=== PATIENT | male | born 1955 | race Caucasian/White ===

== ENCOUNTER 2019-10-21 17:58 | Inpatient (IN) | payer BC ==
--- NOTE | 2019-10-21 19:08 | ED ---
Neuro HPI - General Chief Complaint: Neuro Symptoms/Deficit Stated Complaint: Rt sided weakness Time Seen by Provider: 10/21/19 18:05 Source: patient, EMS Mode of arrival: EMS Limitations: no limitations - History of Present Illness Is the patient presenting with stroke symptoms?: Yes Initial Comments: The patient is a 64-year-old male who is a transfer from [facility] for strokelike symptoms. His reported that on Saturday the patient began having weakness in his right lower extremity as well as ataxia. The patient and this morning noted that he had ataxia and weakness in his right upper extremity. His noted that he was having some slurred speech. He went into [facility] where they were suspecting a cerebellar stroke. Patient had a CT and laboratory studies which were performed which were negative. They did transfer the patient for neurology evaluation. - Related Data Home Medications: Previous Rx's Medication Instructions Recorded Aspirin 81 mg PO DAILY #30 chew 10/22/19 Atorvastatin Calcium [Lipitor] 40 mg PO HS #30 tablet 10/22/19 Clopidogrel [Plavix] 75 mg PO DAILY #21 tab 10/22/19 Allergies/Adverse Reactions: Allergies Allergy/AdvReac Type Severity Reaction Status Date / Time No Known Allergies Allergy Verified 10/21/19 19:21 Review of Systems ROS Statement: Those systems with pertinent positive or pertinent negative responses have been documented in the HPI. ROS Other: All systems not noted in ROS Statement are negative. General Exam Limitations: no limitations General appearance: alert, in no apparent distress Head exam: Present: atraumatic, normocephalic, normal inspection Eye exam: Present: normal appearance, PERRL, EOMI. Absent: scleral icterus, conjunctival injection, periorbital swelling ENT exam: Present: normal exam, mucous membranes moist Neck exam: Present: normal inspection. Absent: tenderness, meningismus, lymphadenopathy Respiratory exam: Present: normal lung sounds bilaterally. Absent: respiratory distress, wheezes, rales, rhonchi, stridor Cardiovascular Exam: Present: regular rate, normal rhythm, normal heart sounds. Absent: systolic murmur, diastolic murmur, rubs, gallop, clicks GI/Abdominal exam: Present: soft, normal bowel sounds. Absent: distended, tenderness, guarding, rebound, rigid Extremities exam: Present: normal inspection, full ROM, normal capillary refill. Absent: tenderness, pedal edema, joint swelling, calf tenderness Back exam: Present: normal inspection Neurological exam: Present: alert, oriented X3, CN II-XII intact, other (4/5 strength in the rle. 5/5 muscle strength in all other extremities. Difficulties with finger to nose of the right upper extremity and heel to silvestre of the right lower extremity. ) Psychiatric exam: Present: normal affect, normal mood Skin exam: Present: warm, dry, intact, normal color. Absent: rash Stroke MDM - Lab Data Result diagrams: 10/22/19 06:14 10/22/19 06:14 - Medical Decision Making Upon arrival the patient was placed into room 6. A thorough history and physica l exam was performed. Review the patient's CT without contrast which was done at [facility] demonstrates no acute intracranial abnormality. Patchy hypodensities in the deep white matter most likely representing chronic small vessel ischemic change. Focal chronic appearing lacunar infarct in the right thalamus. Review the patient's laboratory demonstrated white blood cell count of 19.6. Troponin is not detected. Remainder of laboratory studies normal. The patient is swabbed for Covid which is negative. The patient was admitted to [facility]. I discussed the case with Dr. wilson. I ordered an echo and carotid Dopplers. I will place neurology on consult. Patient was transported to the floor in stable condition Past Medical History History of Any Multi-Drug Resistant Organisms: None Reported Past Surgical History: Orthopedic Surgery Smoking Status: Never smoker Past Alcohol Use History: None Reported, Occasional Past Drug Use History: None Reported - Past Family History Father Family Medical History: CVA/TIA Course Vital Signs 10/21/19 10/21/19 18:01 20:22 Temperature 99.1 F Pulse Rate 71 65 Respiratory 18 15 Rate Blood Pressure 131/76 125/70 O2 Sat by Pulse 97 97 Oximetry Disposition Clinical Impression: Right sided weakness, Cerebrovascular accident (CVA) Disposition: ADMITTED IP TO THIS [facility] Condition: Stable Is patient prescribed a controlled substance at d/c from ED?: No Decision to Admit Reason: Admit from EC Decision Date: 10/21/19 Decision Time: 19:08
[2019-10-21] MEDS ORDERED: NALOXONE 0.4 MG/ML 1 ML VIAL IV PRN (19:25)
[2019-10-21] MEDS: SODIUM CHLORIDE 0.9% 1,000 ML IV SCH (19:35)
[2019-10-21] MEDS ORDERED: POTASSIUM CHLORIDE ER 20 MEQ TAB.ER PO STA (21:56)
--- NOTE | 2019-10-21 22:00 | P.HPIM ---
History of Present Illness H&P Date: 10/21/19 The patient is a 64-year-old male with no known PMH, who was a transfer from [facility] where he presented earlier today with complaints of right- sided weakness. Patient notes that he initially started feeling a right hand numbness 2 days ago, though didn't pay much attention to it. Upon waking up this morning at 5:30 am, the patient noted that his right hand felt stiff and weak, and that his right leg was also very weak and he was unable to ambulate properly. He notes that his symptoms worsened as the day went on, which prompted him to call EMS and the patient presented to [facility] where he underwent an extensive evaluation. His CT brain revealed patchy hypodensities in the deep white matter consistent with small vessel ischemic changes along with a focal chronic lacunar infarct in the right thalamus but was otherwise unremarkable. EKG had revealed a normal sinus rhythm at [address]/T-wave changes. Telemetry evaluation had revealed WBC count of 19.6, hemoglobin 13.6, platelets 173, sodium 138, potassium 3.4, BUN 17, creatinine 0.9, troponin unremarkable, AST 12, and ALT 15. The patient was transferred to [facility] for neurology evaluation. At time of the interview, the patient notes that he continues to feel weakness involving the right hand and the right leg. He denied headaches, visual disturbances, numbness/tingling/weakness elsewhere, fever, chills, dysuria, diarrhea, chest pain, or shortness breath. He denied any previous history of strokes or weakness, though did endorse a family history of CVA with his father suffering a stroke at the age of 45. Review of Systems Pertinent positives and negatives as discussed in HPI, a complete review of systems was performed and all other systems are negative. Past Medical History Past Medical History: No Reported History History of Any Multi-Drug Resistant Organisms: None Reported Past Surgical History: Orthopedic Surgery Smoking Status: Never smoker Past Alcohol Use History: None Reported, Occasional Past Drug Use History: None Reported - Past Family History Father Family Medical History: CVA/TIA Medications and Allergies Home Medications Medication Instructions Recorded Confirmed Type No Known Home Medications 10/21/19 10/21/19 History Allergies Allergy/AdvReac Type Severity Reaction Status Date / Time No Known Allergies Allergy Verified 10/21/19 19:21 Physical Exam Vitals: Vital Signs Temp Pulse Resp BP Pulse Ox 10/21/19 20:22 65 15 125/70 97 10/21/19 18:01 99.1 F 71 18 131/76 97 Intake and Output 10/21/19 10/21/19 10/21/19 06:59 14:59 22:59 Other: Weight 81.647 kg General: non toxic, no distress, appears at stated age, overweight Derm: no unusual rashes/lesions no unusual ecchymoses, warm, dry Head: atraumatic, normocephalic, symmetric Eyes: EOMI, no lid lag, anicteric sclera, pupils equal round reactive to light ENT: Nose and ears atraumatic, no thrush, no pharyngeal erythema Neck: No thyromegaly, no cervical lymphadenopathy, trachea midline, supple Mouth: no lip lesion, mucus membranes moist Cardiovascular: S1S2 reg, no murmur, positive posterior tibial pulse bilateral, no edema, capillary refill less than 2 seconds Lungs: CTA bilateral, no rhonchi, no rales , no accessory muscle use Abdominal: soft, nontender to palpation, no guarding, no appreciable organomegaly, normal bowel sounds Ext: no gross muscle atrophy, muscle strength 4+/5 involving R upper and lower extremities, strength 5/5 for LUE and LLE, Neuro: CN II-XI grossly intact, diminished sensation to soft touch of R distal UE, sensation wnl elsewhere, babinski downwards karrie, no pronator drift, [id number] wnl Psych: Alert, oriented, appropriate affect Assessment and Plan Plan: R sided weakness and numbness, likely acute CVA -Onset 24-48 hours ago -CT brain showing chronic ischemic changes -Consult neurology -Obtain echocardiogram, carotid duplex, cardiac monitoring -Continue with aspirin and start statin -ASSOCIATE [employer]OR [employer] COUNSELING evaluation -Fall, aspiration precautions -PT evaluation -Obtain A1c, lipid panel Leukocytosis, unclear etiology -Monitor CBC for now -No clear infectious process noted Hypokalemia -Replace and monitor Overweight -Advised patient on importance of lifestyle modifications DVT prophylaxis -Heparin subq The patient is admitted with an anticipated more than 2 midnight stay for evaluation of acute CVA CODE STATUS: Full Code Discussed with: Patient Anticipated discharge date: 2-[address]: Home A total of 40 minutes was spent on the care of this complex patient more than 50% of the time was spent in counseling and care coordination.
[2019-10-21] MEDS: HEPARIN SODIUM,PORCINE 5,000 UNIT/ML 1 ML VIAL SQ SCH (22:42)
[2019-10-22] MEDS: SODIUM CHLORIDE 0.9% 1,000 ML IV SCH (05:18)
[2019-10-22 06:50] LABS: Basophils % (A) 0 %; Eosinophils # (A) 0.1 k/uL (0-0.7); Eosinophils % (A) 1 %; HCT 39.7 % (39.0-53.0); HGB 13.1 gm/dL (13.0-17.5); Lymphocytes % (A) 13 %; MCH 29.5 pg (25.0-35.0); MCV 89.5 fL (80.0-100.0); Mean Platelet Volume 7.7; Monocytes # (A) 0.4 k/uL (0-1.0); Monocytes % (A) 5 %; Neutrophils % (A) 80 %; Platelet Count 160 k/uL (150-450); RBC 4.43 m/uL (4.30-5.90); RDW 13.5 % (11.5-15.5); WBC 7.5 k/uL (3.8-10.6)
[2019-10-22 07:18] LABS: African American GFR (CKD) >90 (>60 ml/min/1.73 sqM); Anion Gap 4 mmol/L; Blood Urea Nitrogen 14 mg/dL (9-20); Calcium 8.4 mg/dL (8.4-10.2); Carbon Dioxide 24 mmol/L (22-30); Chloride 110 mmol/L (98-107); Glucose 92 mg/dL (74-99); Non-African American GFR(CKD) >90 (>60 ml/min/1.73 sqM); Potassium 4.3 mmol/L (3.5-5.1); Sodium 138 mmol/L (137-145)
[2019-10-22 07:26] LABS: Cholesterol 161 mg/dL (<200); HDL Cholesterol 42 mg/dL (40-60); LDL Cholesterol,Calculated 106 mg/dL (0-99); Triglycerides 64 mg/dL (<150)
--- NOTE | 2019-10-22 08:50 | US ---
EXAMINATION TYPE: US carotid duplex BILAT DATE OF EXAM: 10/22/2019 COMPARISON: NONE CLINICAL HISTORY: cva. EXAM MEASUREMENTS: RIGHT: Peak Systolic Velocity (PSV) cm/sec ----- Right CCA: 119.2 ----- Right ICA: 107.0 ----- Right ECA: 147.3 ICA/CCA ratio: 0.9 RIGHT: End Diastole cm/sec ----- Right CCA: 24.4 ----- Right ICA: 28.5 ----- Right ECA: 9.9 LEFT: Peak Systolic Velocity (PSV) cm/sec ----- Left CCA: 133.2 ----- Left ICA: 121.1 ----- Left ECA: 234.02 ICA/CCA ratio: 0.9 LEFT: End Diastole cm/sec ----- Left CCA: 32.7 ----- Left ICA: 30.5 ----- Left ECA: 25.3 VERTEBRALS (direction of flow): Right Vertebral: Antegrade Left Vertebral: Antegrade Rhythm: Normal Mild to moderate plaque with no significant stenosis. IMPRESSION: Calcified plaque without evidence for hemodynamically significant stenosis. Criteria for Assigning % of Stenosis / Diameter reduction (Estimation based on the indirect measurements of the internal carotid artery velocities (ICA PSV). 1. Normal (no stenosis)=ICA PSV < 125 cm/s: ratio < 2.0: ICA EDV<40 cm/s. 2. Less than 50% stenosis=ICA PSV < 125 cm/s: ratio < 2.0: ICA EDV<40 cm/s. 3. 50 to 69% stenosis=ICA PSV of 125 to 230 cm/s: ration 2.0 ? 4.0: ICA EDV 40-100 cm/s. 4. Greater than 70% stenosis to near occlusion= ICA PSV > 230 cm/s: ratio > 4.0: ICA EDV > 100 cm/s. 5. Near occlusion= ICA PSV velocities may be low or undetectable: variable ratio and ICA EDV. 6. Total occlusion=unable to detect flow.
[2019-10-22] MEDS ORDERED: ATORVASTATIN 80 MG TAB PO SCH (09:00)
[2019-10-22] MEDS ORDERED: ASPIRIN 81 MG PO SCH (09:00)
[2019-10-22 09:04] VITALS: RESP 18; TEMP 98.2
[2019-10-22] MEDS: HEPARIN SODIUM,PORCINE 5,000 UNIT/ML 1 ML VIAL SQ SCH (09:11)
--- NOTE | 2019-10-22 11:35 | MR ---
EXAMINATION TYPE: MR brain wo con DATE OF EXAM: 10/22/2019 11:25 AM COMPARISON: NONE HISTORY: Right sided Weakness, CVA FINDINGS: The ventricles, basal cisterns and sulci overlying the cerebral convexities are mildly enlarged. There is evidence of moderate periventricular white matter ischemic demyelination. Underlying demyel ination not excluded Remote deep white matter insults are also noted. On diffusion weighted imaging there is a small focus of increased signal within the left lizbeth compati ble with small acute vascular insult. There is no evidence for midline shift or mass effect. Acute intracranial hemorrhage or extra-axial collection is not evident. The paranasal sinuses and mastoid air cells are well-aerated. IMPRESSION: 1. On diffusion weighted imaging there is a small focus of increased signal within the left lizbeth com patible with small acute vascular insult. 2. Age-related atrophic and chronic small vessel ischemic change.
--- NOTE | 2019-10-22 11:39 | ECHOF ---
Referral Reason:cva MEASUREMENTS -------- HEIGHT: 167.6 cm WEIGHT: 77.6 kg BP: 104/56 RVIDd: 3.0 cm (< 3.3) IVSd: 1.2 cm (0.6 - 1.1) LVIDd: 5.2 cm (3.9 - 5.3) LVPWd: 1.2 cm (0.6 - 1.1) IVSs: 1.6 cm LVIDs: 3.7 cm LVPWs: 1.6 cm LA Diam: 3.2 cm (2.7 - 3.8) LAESV Index (A-L): 30.64 ml/m Ao Diam: 3.2 cm (2.0 - 3.7) AV Cusp: 2.0 cm (1.5 - 2.6) MV EXCURSION: 16.269 mm (> 18.000) MV EF SLOPE: 90 mm/s (70 - 150) EPSS: 0.4 cm MV E Justin: 1.09 m/s MV DecT: 177 ms MV A Justin: 1.00 m/s MV E/A Ratio: 1.10 RAP: 5.00 mmHg RVSP: 31.76 mmHg FINDINGS -------- Sinus rhythm. This was a technically good study. The left ventricular size is normal. There is borderline concentric left ventricular hypertrophy. Overall left ventricular systolic function is normal with, an EF between 60 - 65 %. The right ventricle is normal in size. LA is midly dilated 29-33ml/m2. The right atrium is normal in size. Interatrial and interventricular septum intact. There is mild aortic valve sclerosis. Trace to mild aortic regurgitation. The mitral valve is normal. Mild tricuspid regurgitation present. Right ventricular systolic pressure is normal at < 35 mmHg. The pulmonic valve was not well visualized. The aortic root size is normal. Normal inferior vena cava with normal inspiratory collapse consistent with estimated right atrial pre ssure of 5 mmHg. The inferior vena cava is mildly dilated. There is no pericardial effusion. CONCLUSIONS -------- 1. Sinus rhythm. 2. This was a technically good study. 3. The left ventricular size is normal. 4. There is borderline concentric left ventricular hypertrophy. 5. Overall left ventricular systolic function is normal with, an EF between 60 - 65 %. 6. The right ventricle is normal in size. 7. LA is midly dilated 29-33ml/m2. 8. The right atrium is normal in size. 9. Interatrial and interventricular septum intact. 10. There is mild aortic valve sclerosis. 11. Trace to mild aortic regurgitation. 12. The mitral valve is normal. 13. Mild tricuspid regurgitation present. 14. Right ventricular systolic pressure is normal at < 35 mmHg. 15. The pulmonic valve was not well visualized. 16. The aortic root size is normal. 17. Normal inferior vena cava with normal inspiratory collapse consistent with estimated right atrial pressure of 5 mmHg. 18. The inferior vena cava is mildly dilated. 19. There is no pericardial effusion. DRAPERY SUPERVISOR: Nelda Morillo RDCS
[2019-10-22] MEDS ORDERED: CLOPIDOGREL 75 MG TAB PO SCH (11:45)
--- NOTE | 2019-10-22 13:33 | P.PN ---
Subjective Progress Note Date: 10/22/19 Patient is feeling well today. Weakness on the right side of his body resolved today. No acute events overnight. Objective - Vital Signs Vital signs: Vital Signs Temp 98.2 F 10/22/19 08:00 Pulse 60 10/22/19 12:00 Resp 18 10/22/19 12:00 BP 134/63 10/22/19 12:00 Pulse Ox 97 10/22/19 12:00 Intake & Output 10/21/19 10/22/19 10/22/19 18:59 06:59 18:59 Intake Total 640 Balance 640 Weight 81.647 kg 77.9 kg Intake: Intake, IV Titration 400 Amount Sodium Chloride 0.9% 1, 400 000 ml @ 100 mls/hr IV . Q10H RAFAEL Rx#:[id number] Oral 240 Other: Voiding Method Toilet Toilet # Voids 1 3 - Exam General: The patient is awake and alert, in no distress Eye: there is normal conjunctiva bilaterally. Neck: The neck is supple, there is no JVD. Cardiovascular: Normal S1-S2, no S3-S4, no murmurs. Respiratory: Lungs clear to auscultation bilaterally Gastrointestinal: Abdomen is soft, nontender Musculoskeletal: There is no pedal edema. Neurological:. Speech is normal. Skin: Skin is warm and dry - Labs CBC & Chem 7: 10/22/19 06:14 10/22/19 06:14 Labs: Abnormal Lab Results - Last 24 Hours (Table) 10/22/19 10/22/19 Range/Units 06:14 06:14 Chloride 110 H (98-107) mmol/L Creatinine 0.63 L (0.66-1.25) mg/dL LDL Cholesterol, Calc 106 H (0-99) mg/dL Assessment and Plan Assessment: 1. Acute stroke involving the left lizbeth noted on MRI of the brain. Symptoms of right sided weakness and numbness resolved. Awaiting neurology evaluation. Doppler ultrasound of the carotid arteries with no hemodynamically significant stenosis. Echocardiogram showed preserved EF with no significant valvular abnormalities or so intracardiac source. PT/OT evaluation. Continue aspirin daily. Lipitor at bedtime. 2. Hypokalemia, resolved 3. DVT prophylaxis with subcu heparin
--- NOTE | 2019-10-22 14:26 | P.DS ---
Providers Date of admission: 10/21/19 19:25 Expected date of discharge: 10/22/19 Attending physician: Jelani Peña MD Consults: 10/21/19 19:25 Consult Physician Urgent Consulting Provider: Brandy Mann Consult Reason/Comments: acute right sided weakness, ataxia, suspected CVA Do you want consulting provider notified?: Yes Primary care physician: Shawn Pepe MD Hospital Course: This is a 64-year-old male with no significant past medical history who presented to the emergency room with right-sided weakness and numbness involving upper and lower extremity. Patient was evaluated in the ER and computed tomography scan of the head showed no acute findings. Evidence of old ischemic events were noted. He was admitted to the hospital for further management of his medical problems noted below. 1. Acute stroke involving the left lizbeth noted on MRI of the brain. Symptoms of right sided weakness and numbness resolved. Doppler ultrasound of the carotid arteries with no hemodynamically significant stenosis. Echocardiogram showed preserved EF with no significant valvular abnormalities or so intracardiac source. Patient was seen and evaluated by neurology. He was cleared for discharge home. He was assessed by physical therapy and did well. Plan is to continue aspirin 81 mg daily indefinitely and Plavix 75 mg daily for 3 weeks. 2. Hyperlipidemia, started on Lipitor 40 mg at bedtime Patient will be discharged home in a stable condition. For further details about this hospitalization please refer to the electronic chart. Patient Condition at Discharge: Stable Plan - Discharge Summary Discharge Rx Participant: No New Discharge Prescriptions: New Aspirin 81 mg PO DAILY #30 chew Atorvastatin Calcium [Lipitor] 40 mg PO HS #30 tablet Clopidogrel [Plavix] 75 mg PO DAILY #21 tab Discharge Medication List Aspirin 81 mg PO DAILY #30 chew 10/22/19 [Rx] Atorvastatin Calcium [Lipitor] 40 mg PO HS #30 tablet 10/22/19 [Rx] Clopidogrel [Plavix] 75 mg PO DAILY #21 tab 10/22/19 [Rx] Follow up Appointment(s)/Referral(s): Shawn Pepe MD [Primary Care Provider] - 1-2 days Discharge Disposition: HOME SELF-CARE Care Plan Goals (MU): Local neurologist 2-[address] Mann
--- NOTE | 2019-10-22 14:38 | P.CNNES ---
History of Present Illness Consult date: 10/22/19 Requesting physician: Mariah Bobby Reason for Consult: Acute right-sided weakness, ataxia, suspected CVA. History of Present Illness: Patient is a 64-year-old right-handed male, transferred from [facility] where he presented yesterday morning with complaints of right-sided weakness. His symptoms started on 10/19/2019 at around 9:30 PM, when he noticed his right hand was feeling different, tight. Also noticed slightly off balance with the right leg. Next a on Saturday morning, continue to feel symptoms on the right side. He fell right side was not as good as the left. Balance was slightly off. On Saturday, yesterday he knew that something was not right and he was having more difficulty walking and the right leg felt floppy. He at first went to work but then decided to go to the ER. Patient went to [facility] where he had a computed tomography scan of head performed at [facility] which revealed hypodensities in the deep white matter consistent with small vessel ischemic changes along with a focal chronic lacunar infarct in the right thalamus but was otherwise unremarkable. EKG showed normal sinus rhythm at 80 beats per minute with no ST/T-wave abnormalities. WBC 19.6 and will begin 13.6 platelets 173. Chem-7, troponin normal. Liver panel normal, with AST 12, ALT 15. Patient was transferred to [facility] yesterday at 6 PM. Patient underwent an MRI of the brain revealed small focus of increased signal within the left lizbeth, compatible with small acute vascular insult. Age-related atrophic and chronic small vessel ischemic change. Carotid Doppler showed calcified plaque without evidence for hemodynamically significant stenosis. Antegrade flow in both vertebral arteries. Patient's cholesterol is 161, LDL 106, HDL 42, triglycerides 64. Angulo virus PCR negative. Patient denies any history of hypertension, diabetes or any tobacco use. He drinks alcohol once a week, maybe one can a week. Patient does not take any medication at all at home. At present patient feels his symptoms have much improved. He was feeling steady going to the bathroom. The strength is improved. Denies any numbness tingling. Review of Systems Completely unremarkable as above. Denies chest pain shortness of breath w heezing or cough. Denies abdominal pain nausea vomiting diarrhea. All other review of systems completely unremarkable. Past Medical History Past Medical History: No Reported History History of Any Multi-Drug Resistant Organisms: None Reported Past Surgical History: Orthopedic Surgery Past Anesthesia/Blood Transfusion Reactions: No Reported Reaction Smoking Status: Never smoker Past Alcohol Use History: None Reported, Occasional Past Drug Use History: None Reported - Past Family History Father Family Medical History: CVA/TIA Medications and Allergies Home Medications Medication Instructions Recorded Confirmed Type Aspirin 81 mg PO DAILY #30 chew 10/22/19 Rx Atorvastatin Calcium [Lipitor] 40 mg PO HS #30 tablet 10/22/19 Rx Clopidogrel [Plavix] 75 mg PO DAILY #21 tab 10/22/19 Rx Allergies Allergy/AdvReac Type Severity Reaction Status Date / Time No Known Allergies Allergy Verified 10/21/19 19:21 Physical Examination - Vital Signs Vital Signs: Vital Signs Temp Pulse Pulse Resp BP BP BP 10/22/19 08:00 98.2 F 66 18 116/55 10/22/19 04:00 98 F 65 17 104/56 10/22/19 00:00 98 F 55 L 17 108/55 10/21/19 21:40 97.7 F 69 16 137/63 10/21/19 20:22 65 15 125/70 10/21/19 18:01 99.1 F 71 18 131/76 Pulse Ox 10/22/19 08:00 99 10/22/19 04:00 96 10/22/19 00:00 99 10/21/19 21:40 96 10/21/19 20:22 97 10/21/19 18:01 97 Intake and Output 10/21/19 10/22/19 10/22/19 22:59 06:59 14:59 Intake Total 240 Balance 240 Intake: Oral 240 Other: Voiding Method Toilet Toilet # Voids 1 1 Weight 81.647 kg 77.9 kg On examination patient is a young looking elderly male, in no distress. He is alert and awake. Speech and language functions are normal. Attention and concentration fund of knowledge is adequate. On cranial examination pupils are round and reactive to light. Visual murguia are full on confrontation, extraocular muscles intact with no nystagmus. Face is symmetric, tongue protrudes the midline. Palatal elevation and sensation normal. Hearing and shoulder shrug normal. On muscle strength testing patient has mild right pronation no drift. The strength is completely normal in both arms and legs dis tally and proximally except right hip flexion, which is about 5-on the right as compared to left. Patient has mild to moderate ataxia for [id number] and [id number] testing only on the right side. Sensory touch is equal with no neglect. Tone and bulk of muscles normal. Patient had walked with a physical therapy and was felt stable. There is no carotid bruit or murmur, peripheral pulses present. Chest is clear to auscultation, abdomen soft nontender. No edema. Results - Laboratory Findings CBC and BMP: 10/22/19 06:14 10/22/19 06:14 Abnormal Lab Findings: Abnormal Labs 10/22/19 10/22/19 06:14 06:14 Chloride 110 H Creatinine 0.63 L LDL Cholesterol, Calc 106 H Assessment and Plan Assessment: * Acute ischemic stroke, left lizbeth, with right kandy-ataxia. Motor and sensory examination appears normal at this time. Mechanism of stroke likely from small vessel disease. Current NIHSS 2 (ataxia right upper and lower limbs). * Mild dyslipidemia Plan: * Patient is doing quite well. I would suggest placing patient on dual antiplatelet medication for 3 weeks and then stay on aspirin 81 mg daily inde finitely. * Lipitor 20 mg daily. * Patient's blood pressure is well controlled. * Patient has been seen by PT and was deemed safe for discharge. * May consider outpatient PT. * Neurologically clear for discharge. Follow up with neurology in 1-2 weeks.
[2019-10-22 15:06] LABS: Hemoglobin A1C 5.3 % (4.0-6.0)
[2019-10-22 16:03] VITALS: BP 144/77; PULSE 80
== END 2019-10-22 16:52 | disposition home or self-care (01) | DRG 65 ==
LOC: EC 17:58 → 3SCARD 19:25
PROVIDERS: ADMIT Internal Medicine; ATTEND Internal Medicine
DX: I63.81 Other cerebral infarction due to occlusion or stenosis of small artery (principal); G81.91 Hemiplegia, unspecified affecting right dominant side; R40.2362 Coma scale, best motor response, obeys commands, at arrival to emergency department; R40.2142 Coma scale, eyes open, spontaneous, at arrival to emergency department; R40.2252 Coma scale, best verbal response, oriented, at arrival to emergency department; Z11.59 Encounter for screening for other viral diseases; R29.700 NIHSS score 0; D72.829 Elevated white blood cell count, unspecified; E87.6 Hypokalemia; E66.3 Overweight; R27.0 Ataxia, unspecified; R29.702 NIHSS score 2; E78.5 Hyperlipidemia, unspecified; R47.81 Slurred speech; Z68.27 Body mass index [BMI] 27.0-27.9, adult; Z82.3 Family history of stroke
CPT/HCPCS: 70551; 80048; 80061; 83036; 84484; 85025; 87635; 93306; 93880; 96360; 96361; 99285